=== PATIENT | female | born 1965 | race Caucasian/White ===

== ENCOUNTER 2019-03-12 10:06 | Emergency (ER) | payer BC ==
[~2019-03-12] VITALS: Ht 177.8 cm; Wt 59.0 kg
[2019-03-12 10:18] VITALS: BP_SYST 126
--- NOTE | 2019-03-12 10:20 | NUR ---
Patient to ER bed 4 to gown for evaluation[address] Place on monitoring analyst. Side rails up. Report given to Margarita KELLY.
--- NOTE | 2019-03-12 10:27 | NUR ---
patient arrived AOx4 from home with c/o near syncope x yesterday. patient states when the event happen, she then went to sleep for 5 hours in the middle of the day. patient states she remembers hitting her head several times but did not come to ER. patient has no currrent neuro def noted. patient present with a stable gait, bilateral strength to all extremities. patient stated she has had this happen before about 5 months ago and has not been worked up for this problem. no ther complaint or injury at this time.
--- NOTE | 2019-03-12 10:27 | NUR ---
# 18 gauge angiocath placed to Left forearm. Use of asceptic technique. Opsite placed over site. Blood return noted. Blood for lab drawn from site. Flushed with 10 cc of normal saline. No evidence of infiltration noted. Patient tolerated well.
--- NOTE | 2019-03-12 10:37 | NUR ---
ER Dr. Contreras at bedside examining patient.
--- NOTE | 2019-03-12 10:37 | NUR ---
patient left to RD for scan.
[2019-03-12] MEDS ORDERED: NS 500 ML IV ONE (10:45)
[2019-03-12 10:56] LABS: BILIRUBIN,URINE NEGATIVE (NEGATIVE); BLOOD, URINE NEGATIVE (NEGATIVE); CLARITY/URINE CLEAR (CLEAR); COLOR,URINE YELLOW (YELLOW); GLUCOSE,URINE NEGATIVE (NEGATIVE); KETONES,URINE NEGATIVE (NEGATIVE); LEUKOCYTE ESTERASE ,URINE 1+ (NEGATIVE); NITRITE, URINE NEGATIVE (NEGATIVE); PROTEIN URINE NEGATIVE (NEGATIVE); UROBILINOGEN,URINE 0.2 (0.2-1.0)
[2019-03-12 11:12] LABS: CANNABINOID, URINE POSITIVE (NEG <=50); OPIATE, URINE POSITIVE (NEG <=100)
[2019-03-12 11:13] LABS: BARBITURATE, URINE NEGATIVE (NEG <=200); BENZODIAZEPINE, URINE NEGATIVE (NEG <=150); COCAINE, URINE NEGATIVE (NEG <=150); METHAMPHETAMINES SCREEN,URINE NEGATIVE (NEG <=500); PHENCYCLIDINE SCREEN,URINE NEGATIVE (NEG <=25); UR TRICYCLIC ANTIDEPRESSANTS POSITIVE (NEG <=300); URINE AMPHETAMINE NEGATIVE (NEG <=500); URINE METHADONE NEGATIVE (NEG <=200); URINE OXYCODONE SCREEN NEGATIVE (NEG <=100); URINE PROPOXYPHENE SCREEN NEGATIVE (NEG <=300)
[2019-03-12 11:14] LABS: BACTERIA,URINE FEW /HPF (None Seen); RBC,URINE 0-3 /HPF (0-3); TRICHOMONAS,URINE None Seen /HPF (None Seen); WBC,URINE 0-3 /HPF (0-3); YEAST,URINE None Seen /HPF (None Seen)
[2019-03-12 11:15] LABS: CALCIUM OXALATE CRYSTALS,UR None Seen /HPF (None Seen); CALCIUM PHOSPHATE CRYSTALS,UR None Seen /HPF (None Seen); OTHER CRYSTALS,URINE None Seen /HPF (None Seen); TRIPLE PHOSPHATE CRYSTAL,UR None Seen /HPF (None Seen); URIC ACID CRYSTALS,URINE None Seen /HPF (None Seen)
[2019-03-12 11:16] LABS: COARSE GRANULAR CASTS,URINE None Seen /LPF (None Seen); FINE GRANULAR CASTS,URINE None Seen /LPF (None Seen); HYALINE CASTS, URINE None Seen /LPF (None Seen); MUCUS,URINE None Seen /LPF (None Seen); OTHER CASTS, URINE None Seen /LPF (None Seen); URINE AMORPHOUS PHOSPHATES None Seen /HPF (None Seen); URINE AMORPHOUS URATE None Seen /HPF (None Seen); WAXY CASTS,URINE None Seen /LPF (None Seen)
[2019-03-12 11:20] LABS: BASOPHILS % (AUTO) 0.7 % (0.0-2.0); EOSINOPHILS # (AUTO) 0.1 K/uL (0.0-0.4); EOSINOPHILS % (AUTO) 1.5 % (0.0-4.0); HEMATOCRIT 39.9 % (36-48); HEMOGLOBIN 13.4 g/dL (12.0-16.0); LYMPHOCYTES # (AUTO) 1.7 K/uL (1.0-5.5); LYMPHOCYTES % (AUTO) 27.1 % (20.5-51.5); MEAN CORPUSCULAR HEMOGLOBIN 31 pg (27-31); MEAN CORPUSCULAR HGB CONC 34 % (32-36); MEAN CORPUSCULAR VOLUME 92 fL (79.0-98.0); MONOCYTES # (AUTO) 0.5 K/uL (0.0-1.0); MONOCYTES % (AUTO) 7.5 % (1.7-9.3); NEUTROPHILS # (AUTO) 3.9 K/uL (1.8-7.7); NEUTROPHILS % (AUTO) 63.2 % (40.0-70.0); PLATELET COUNT (AUTO) 256 K/uL (130-430); RED BLOOD CELL COUNT(AUTO) 4.35 MIL/uL (4.2-6.2); RED CELL DISTRIBUTION WIDTH 13.2 % (9.0-15.0); WHITE BLOOD COUNT (AUTO) 6.2 K/uL (4.8-10.8)
--- NOTE | 2019-03-12 11:23 | NUR ---
patient returned to bed in stable condition
[2019-03-12 11:28] LABS: ANION GAP 9 (5-15); CALCIUM 9.6 mg/dL (8.4-11.0); CHLORIDE 101 mmol/L (98-107); GLUCOSE 141 mg/dL (70-99); POTASSIUM 4.4 mmol/L (3.5-5.1); SODIUM SERUM 137 mmol/L (136-145); UREA NITROGEN, BLOOD 14 mg/dL (8-21)
[2019-03-12 11:29] LABS: CREATININE 0.86 mg/dL (0.55-1.30)
[2019-03-12 11:30] LABS: GFR AFRICAN AMERICAN 88 mL/min (>90)
[2019-03-12 11:33] LABS: ALANINE AMINOTRANSFERASE 29 U/L (12-78); ASPARTATE AMINOTRANSFERASE 22 U/L (10-37); TOTAL BILIRUBIN 0.5 mg/dL (0.0-1.0)
[2019-03-12 11:34] LABS: ALCOHOL, BLOOD < 3 mg/dL (<10); INR 1.1 (0.8-1.2); PROTHROMBIN TIME 11.5 SECS (9.5-12.5)
--- NOTE | 2019-03-12 13:12 | NUR ---
PATIENT WAS WHEELED TO MRI. PATIENT NOT COMPLAINING OF ANY DISTRESS.
--- NOTE | 2019-03-12 13:41 | NUR ---
patient returned to bed from MRI in stable condition.
[2019-03-12 14:46] VITALS: BP_SYST 123
--- NOTE | 2019-03-12 14:46 | NUR ---
Patient given written and verbal discharge instructions and verbalizes understanding. ER MD discussed with patient the results and treatment provided. Patient in stable condition. ID arm band removed. IV catheter removed intact and dressing applied, no active bleeding. Rx of Tylenol, Cipro given. Patient educated on pain management and to follow up with PMD. Pain Scale 0/10. Opportunity for questions provided and answered. Medication side effect fact sheet provided.
== END 2019-03-12 14:46 | disposition home or self-care (01) ==
LOC: SED 10:06
DX: J32.9 Chronic sinusitis, unspecified (principal); R56.9 Unspecified convulsions; N39.0 Urinary tract infection, site not specified; M79.7 Fibromyalgia; Z87.891 Personal history of nicotine dependence; Z90.89 Acquired absence of other organs
CPT/HCPCS: 36415; 70450; 70551; 71045; 80053; 80307; 81000; 84484; 85025; 85610; 85730; 87086; 93005; 99284; G0482; J7040

== ENCOUNTER 2020-10-03 12:55 | Inpatient (IN) | payer BC, SELFPAY ==
[~2020-10-03] VITALS: Ht 177.8 cm; Wt 59.9 kg
[2020-10-03 13:00] VITALS: BP_SYST 133
--- NOTE | 2020-10-03 13:00 | NUR ---
Placed in room 3. Placed on cardiac cath technologist, blood pressure machine and pulse oximeter. To gown for exam. Side rails up.
--- NOTE | 2020-10-03 13:01 | NUR ---
Patient came from home for evaluation of chest pain that has been intermittent for 2 weeks getting progressively worse over the past 2 days. Patient states the pain radiates to her left arm.
--- NOTE | 2020-10-03 13:03 | NUR ---
ER Dr. Garcia at bedside examining patient.
[2020-10-03 13:27] LABS: BASOPHILS # (AUTO) 0.1 K/uL (0.0-0.2); BASOPHILS % (AUTO) 1.3 % (0.0-2.0); EOSINOPHILS # (AUTO) 0.2 K/uL (0.0-0.4); EOSINOPHILS % (AUTO) 2.5 % (0.0-4.0); HEMATOCRIT 38.6 % (36-48); LYMPHOCYTES # (AUTO) 1.9 K/uL (1.0-5.5); LYMPHOCYTES % (AUTO) 26.3 % (20.5-51.5); MEAN CORPUSCULAR HEMOGLOBIN 31 pg (27-31); MEAN CORPUSCULAR HGB CONC 34 % (32-36); MEAN CORPUSCULAR VOLUME 91 fL (79.0-98.0); MONOCYTES # (AUTO) 0.6 K/uL (0.0-1.0); MONOCYTES % (AUTO) 7.7 % (1.7-9.3); NEUTROPHILS # (AUTO) 4.5 K/uL (1.8-7.7); NEUTROPHILS % (AUTO) 62.2 % (40.0-70.0); PLATELET COUNT (AUTO) 284 K/uL (130-430); RED BLOOD CELL COUNT(AUTO) 4.23 MIL/uL (4.2-6.2); RED CELL DISTRIBUTION WIDTH 13.3 % (9.0-15.0); WHITE BLOOD COUNT (AUTO) 7.3 K/uL (4.8-10.8)
[2020-10-03 13:39] LABS: ANION GAP 6 (5-15); CALCIUM 8.6 mg/dL (8.4-11.0); CHLORIDE 103 mmol/L (98-107); CREATININE 0.74 mg/dL (0.55-1.30); GLUCOSE 97 mg/dL (70-99); SODIUM SERUM 139 mmol/L (136-145); UREA NITROGEN, BLOOD 10 mg/dL (8-21)
[2020-10-03 13:41] LABS: GFR AFRICAN AMERICAN 105 mL/min (>90)
[2020-10-03 13:48] LABS: ALANINE AMINOTRANSFERASE 26 U/L (12-78); ALBUMIN 4.2 g/dL (3.4-4.8); ASPARTATE AMINOTRANSFERASE 24 U/L (10-37); LIPASE 744 U/L (73-393); TOTAL BILIRUBIN 0.5 mg/dL (0.0-1.0)
[2020-10-03] MEDS ORDERED: ASPIRIN 81 MG TAB.CHEW PO ONE (14:15)
[2020-10-03] MEDS ORDERED: LEVO125T8 PO (14:25)
[2020-10-03] MEDS ORDERED: ASPI-1155 PO (14:25)
[2020-10-03] MEDS ORDERED: FOLI-43 PO (14:25)
[2020-10-03] MEDS ORDERED: DULO60CA41 PO (14:25)
--- NOTE | 2020-10-03 14:25 | NUR ---
Medication reconciliation completed with information provided by patient. Any prior medication reconciliation on file was reviewed and corrected.
--- NOTE | 2020-10-03 14:33 | NUR ---
Patient will be admitted to care of Dr. Johnson. Admitted to Telemetry unit. Will go to room 101B. Belongings list completed. Complete and up to date summary report printed. SBAR report to be given at bedside with opportunity for questions.
--- NOTE | 2020-10-03 15:12 | NUR ---
CONSULTATION PAGED REASON FOR CONSULTATION:CHEST PAIN R/O OR WAS CONSULT CALLED?Y PERSON WHO WAS NOTIFIED:GIULIANO CONSULTING PHYSICIAN:NOHEMI YOUNG ([employer] VICE PRESIDENT) SPEECH ASSISTANT SPECIALTY:CARDIO SPEECH ASSISTANT PHONE NUMBER:[phone] ORDERING PHYSICIAN:ELA DAVILA
--- NOTE | 2020-10-03 15:20 | NUR ---
Transfer to [facility] via ACLS protocol. Licensed nurse present. IV present no signs or symptoms of infiltration.
--- NOTE | 2020-10-03 15:49 | NUR ---
Admission Note Received patient from ER with diagnosis of chest pain R/O KS. Initial Plan of Care discussed-patient verbalized understanding. Family at bedside. Oriented to room, call light, pain management and safety.
[2020-10-03] MEDS ORDERED: FLU VACC QS2020-21 (6 mos & up) 0.5 ML/SYRINGE I.M. PRN (16:00)
[2020-10-03 16:13] VITALS: BP_SYST 130
[2020-10-03 16:23] VITALS: BP_SYST 130
[2020-10-03] MEDS ORDERED: ALBUTEROL SULFATE 0.083% 2.5 MG/3 ML VIAL.NEB INH PRN (16:45)
[2020-10-03] MEDS ORDERED: ALPRAZolam 0.25 MG TABLET PO ONE (16:45)
--- NOTE | 2020-10-03 17:57 | NUR ---
ROUTINE MEDS/ FLU VACCINE ADMINISTERED ROUTINE MEDS AND FLU VACCINE ORDERED PER MD, EDUCATION GIVEN, TOLERATED WELL.
--- NOTE | 2020-10-03 18:45 | NUR ---
closing notes pt awake, alert, and oriented, eating dinner in bed. brought pt's 2 vape juices, vape, and powder in thc container back to to bring home. nonlabored breathing noted on room air. iv line intact and patent, no signs of infiltration noted. no acute distress noted. all needs met. call light in reach. fall and aspiration precautions in place. bed locked and in lowest position. will endorse to noc nurse including pt's additional belongings brought from
--- NOTE | 2020-10-03 19:30 | NUR ---
OPENING NOTES: Received report from dayshift nurse. Patient is alert and oriented x4. She is on tele monitor and was admitted for chest pain. Patient declined any pain at this time. Ensured all safety precautions. Bed is locked and in the lowest position, call light within reach.
[2020-10-03 20:00] VITALS: BP_SYST 105
[2020-10-03] MEDS ORDERED: ZOLPIDEM TARTRATE 5 MG TABLET PO SCH (21:00)
--- NOTE | 2020-10-03 21:40 | NUR ---
MEDICATION ADMINISTRATION: Patient is laying in bed with no s/s of distress or discomfort. She is requesting her scheduled Ambien to help her sleep. Medication administered as ordered. Educated patient about the potential side effects of Ambien such as drowsiness and advised her not to get up to quickly and call for assistance if she feels drowsy. Patient verbalized understanding. Will continue to monitor.
[2020-10-03] MEDS: NORMAL SALINE 5 ML DISP.SYRIN IVF SCH (21:43)
--- NOTE | 2020-10-03 23:00 | NUR ---
RN ROUNDS: Patient is laying in bed and appears to be asleep. She is not exhibiting any s/s of distress or discomfort. will continue to monitor patient.
[2020-10-04] VITALS: BP_SYST 104
--- NOTE | 2020-10-04 01:00 | NUR ---
RN ROUNDS: Patient is laying in bed with no s/s of distress or discomfort. Will continue to monitor.
--- NOTE | 2020-10-04 03:00 | NUR ---
RN ROUNDS: Patient is laying in bed and appears to be asleep. She is in stable condition. Will continue to monitor.
--- NOTE | 2020-10-04 05:00 | NUR ---
RN ROUNDS: Patient is laying in bed and continues to be asleep. She has unlabored breathing on room air and is tolerating well. Bed is in the lowest position with alarm on. Will continue to monitor.
[2020-10-04] MEDS: NORMAL SALINE 5 ML DISP.SYRIN IVF SCH (06:20)
[2020-10-04 06:27] LABS: BASOPHILS % (AUTO) 0.8 % (0.0-2.0); EOSINOPHILS # (AUTO) 0.2 K/uL (0.0-0.4); EOSINOPHILS % (AUTO) 3.6 % (0.0-4.0); HEMATOCRIT 36.6 % (36-48); HEMOGLOBIN 12.5 g/dL (12.0-16.0); LYMPHOCYTES # (AUTO) 1.6 K/uL (1.0-5.5); LYMPHOCYTES % (AUTO) 26.4 % (20.5-51.5); MEAN CORPUSCULAR HEMOGLOBIN 31 pg (27-31); MEAN CORPUSCULAR HGB CONC 34 % (32-36); MEAN CORPUSCULAR VOLUME 91 fL (79.0-98.0); MONOCYTES # (AUTO) 0.4 K/uL (0.0-1.0); MONOCYTES % (AUTO) 7.4 % (1.7-9.3); NEUTROPHILS # (AUTO) 3.7 K/uL (1.8-7.7); NEUTROPHILS % (AUTO) 61.8 % (40.0-70.0); PLATELET COUNT (AUTO) 255 K/uL (130-430); RED BLOOD CELL COUNT(AUTO) 4.04 MIL/uL (4.2-6.2); RED CELL DISTRIBUTION WIDTH 13.3 % (9.0-15.0)
[2020-10-04 06:32] LABS: ALANINE AMINOTRANSFERASE 21 U/L (12-78); ALBUMIN 3.7 g/dL (3.4-4.8); ANION GAP 8 (5-15); ASPARTATE AMINOTRANSFERASE 21 U/L (10-37); CALCIUM 7.7 mg/dL (8.4-11.0); CHLORIDE 105 mmol/L (98-107); CREATININE 0.69 mg/dL (0.55-1.30); GLUCOSE 97 mg/dL (70-99); SODIUM SERUM 141 mmol/L (136-145); TOTAL BILIRUBIN 0.4 mg/dL (0.0-1.0); UREA NITROGEN, BLOOD 10 mg/dL (8-21)
--- NOTE | 2020-10-04 06:53 | NUR ---
CLOSING NOTES: Patient is laying in bed and is currently asleep. She is not exhibiting an s/s of distress or discomfort. She did not have an complaints of chest pain throughout shift. Patient has IV on right hand, patent and intact. All needs were met throughout shift. Ensured all safety precautions. Bed is in the lowest position and call light within reach. Will endorse to dayshift nurse.
[2020-10-04 07:26] LABS: GFR AFRICAN AMERICAN 114 mL/min (>90)
[2020-10-04 07:27] LABS: LIPASE 154 U/L (73-393)
[2020-10-04 07:40] VITALS: BP_SYST 104
--- NOTE | 2020-10-04 07:50 | NUR ---
INITIAL NOTE RECEIVED PT IN BED, NO S/S OF DISTRESS OR SOB NOTED, PT HAS NO C/O PAIN AT THIS TIME, PT IN STABLE CONDITION. PT AAOX4, VERBAL. IV CATHETER PATENT, NO SIGNS OF INFECTION OR INFILTRATION NOTED. BED AT LOWEST POSITION, CALL LIGHT WITHIN REACH, WILL CONTINUE TO MONITOR PT FOR ANY CHANGES.
[2020-10-04 08:20] VITALS: BP_SYST 94
[2020-10-04] MEDS ORDERED: ASPIRIN 81 MG TABLET(ECOTRIN) PO SCH (09:00)
[2020-10-04] MEDS ORDERED: DULoxetine HCL 30 MG CAPSULE.DR (CYMBALTA) PO SCH (09:00)
[2020-10-04] MEDS ORDERED: CITALOPRAM HYDROBROMIDE 20 MG TABLET PO SCH (09:00)
[2020-10-04 10:12] VITALS: BP_SYST 96
--- NOTE | 2020-10-04 10:51 | NUR ---
ROUNDS PT IN BED, NO S/S OF DISTRESS OR SOB NOTED, PT HAS NO C/O PAIN AT THIS TIME, PT IN STABLE CONDITION, PT WATCHING TV, WILL CONTINUE TO MONITOR PT FOR ANY CHANGES.
[2020-10-04 12:12] VITALS: BP_SYST 96
--- NOTE | 2020-10-04 12:47 | NUR ---
MD VISIT/CARDIO DR COHEN AT BED SIDE TALKING TO PT. PT IS CLEAR FOR DISCHARGE PER DR COHEN. PT TO FOLLOW UP WITH DR VENEGAS AND DR CEDILLO FOR STRESS TEST OUT PT.
--- NOTE | 2020-10-04 13:00 | NUR ---
D/C Patient Patient given medication reconciliation form and D/C instructions. Exit Care provided. Patient verbalized understanding. MD discussed with patient the results and treatment provided. Ambulatory with steady gait for discharge to home. Patient in stable condition, ID band removed. IV catheter removed, intact and dressing applied, no active bleeding. Rx of cephalexin given. Patient educated on pain management. All belongings sent with patient.
== END 2020-10-04 13:00 | disposition home or self-care (01) | DRG 313 ==
LOC: SED 12:55 → STU 14:26
PROVIDERS: ADMIT Internal Medicine; ATTEND Internal Medicine
DX: R07.89 Other chest pain (principal); E03.9 Hypothyroidism, unspecified; I88.9 Nonspecific lymphadenitis, unspecified; J45.909 Unspecified asthma, uncomplicated; G47.00 Insomnia, unspecified; Z20.828 Contact with and (suspected) exposure to other viral communicable diseases; F32.9 Major depressive disorder, single episode, unspecified; F41.9 Anxiety disorder, unspecified; J31.0 Chronic rhinitis; Z79.82 Long term (current) use of aspirin; Z79.899 Other long term (current) drug therapy
CPT/HCPCS: 36415; 71045; 80053; 82550-TC; 83690-TC; 84484; 85025; 93005; G0378